=== PATIENT | male | born 1990 | race Caucasian/White ===

== ENCOUNTER 2018-07-01 02:55 | Emergency (ER) | payer OTHER ==
[2018-07-01 03:06] VITALS: BP 131/70
--- NOTE | 2018-07-01 03:15 | ED Physician Documentation ---
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) Where injury occurred: Work Timing - onset: Today Timing - duration: Hours Timing - details: Abrupt onset, Still present Improved by: Rest, Immobilization Worsened by: Moving, Palpating Associated symptoms: No: Weakness, Numbness, Tingling Contributing factors: No: Anticoagulated Similar symptoms before: Diagnosis (shoulder dislocation) Recently seen: Not recently seen - Additonal information Additional information: 27-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 He has had his shoulders dislocate previously and he was able to get his shoulder back in joint by manipulating his shoulder. He has a lot of pain associated with this now. Review of Systems Constitutional: denies: Fever Eyes: denies: Decreased vision, Photophobia Ears: denies: Ear pain Nose: denies: Congestion Throat: denies: Sore throat Cardiac: denies: Chest pain / pressure Respiratory: denies: Dyspnea, Cough GI: denies: Abdominal Pain, Nausea, Vomiting : denies: Dysuria, Frequency Skin: denies: Rash Musculoskeletal: reports: Joint pain. denies: Neck pain, Back pain Neurologic: denies: Generalized weakness, Focal weakness, Numbness PD PAST MEDICAL HISTORY - Past Medical History Past Medical History: No - Past Surgical History Past Surgical History: No - Present Medications Home Medications: Ambulatory Orders Medication Instructions Recorded Confirmed No Known Home Medications 07/01/18 07/01/18 - Allergies Allergies/Adverse Reactions: Allergies Allergy/AdvReac Type Severity Reaction Status Date / Time No Known Drug Allergies Allergy Verified 07/01/18 03:02 - Social History Does the pt smoke?: Yes Smoking Status: Current every day smoker Does the pt drink ETOH?: No Does the pt have substance abuse?: No - Immunizations Immunizations are current?: Yes PD ED PE NORMAL - Vitals Vital signs reviewed: Yes (hypertensive mild ) - General General: Alert and oriented X 3, Well developed/nourished - HEENT HEENT: Atraumatic, PERRL - Neck Neck: Supple, no meningeal sign, No bony TTP - Respiratory Respiratory: No respiratory distress - Derm Derm: Normal color, Warm and dry, No rash - Extremities Extremities: No deformity, No edema, Other (There is point tenderness to the anterior shoulder and pain with any movement. There is unrestricted movement through ROM just painful. The joint does not seem to be out of socket now. distal n/v is intact. ) - Neuro Neuro: Alert and oriented X 3, back end architect 2-12 intact, No motor deficit, No sensory deficit, Normal speech Eye Opening: Spontaneous Motor: Obeys Commands Verbal: Oriented GCS Score: 15 - Psych Psych: Normal mood, Normal affect Results - Vitals Vitals: Vital Signs - 24 hr 07/01/18 02:58 Temperature 36.7 C Heart Rate 54 L Respiratory 16 Rate Blood Pressure 131/70 H O2 Saturation 98 Oxygen O2 Source Room air - Rads (name of study) R shoulder Radiology: Prelim report reviewed (Impression: No acute osseous abnormality demonstrated.), EMP read indepedently, See rad report PD MEDICAL DECISION MAKING - ED course Complexity details: reviewed results, re-evaluated patient, considered differential, d/w patient, d/w family ED course: 27 y/o male with history of shoulder dislocations has had a spontaneously reduced dislocation of the right shoulder and post dislocation pain. He is placed into a sling and given instructions about shoulder dislocation and he is asked to follow up with orthopedics. Departure - Departure Disposition: 01 Home, Self Care Clinical Impression: Dislocation of right shoulder joint Qualifiers: Encounter type: initial encounter Qualified Code(s): S43.004A - Unspecified dislocation of right shoulder joint, initial encounter Condition: Stable Instructions: Shoulder Instability, ED Dislocation Shoulder Redu Follow-Up: [facility] [Provider Group]
--- NOTE | 2018-07-01 03:55 | XRAY Report ---
Reason: dislocation/reduced Procedure Date: 07/01/2018 Accession Number: [id number] / [id number] Procedure: XR - Shoulder 3 View RT CPT Code: FULL RESULT: EXAM: RIGHT SHOULDER RADIOGRAPHY EXAM DATE: 07/01/2018 03:32 AM. CLINICAL HISTORY: Dislocation/reduced. Pushing on a lever tonight, popped shoulder out posteriorly, patient popped it back in, "has popped out shoulder several times". COMPARISON: None. TECHNIQUE: 4 views. FINDINGS: Bones: No acute displaced fractures or suspicious bony lesion. Joints: No dislocation. Soft Tissues: No significant soft tissue swelling. IMPRESSION: No acute osseous abnormality demonstrated. RADIA RADIA
== END 2018-07-01 04:12 | disposition home or self-care (01) ==
LOC: ED 02:55
DX: S43.004A Unspecified dislocation of right shoulder joint, initial encounter (principal); F17.200 Nicotine dependence, unspecified, uncomplicated; X50.0XXA Overexertion from strenuous movement or load, initial encounter; Y93.89 Activity, other specified; Y99.1 Military activity
CPT/HCPCS: 99283

== ENCOUNTER 2018-07-22 11:48 | Outpatient (CLI) | payer OTHER ==
[~2018-07-22 11:48] MED LIST: GADOPENTETATE DIMEGLUMINE 5 ML VIAL IVP ONE; IOTHALAMATE MEGLUMINE 50 ML VIAL ONE
[2018-07-22] MEDS ORDERED: GADOPENTETATE DIMEGLUMINE 5 ML VIAL IVP ONE (12:54)
[2018-07-22] MEDS ORDERED: IOTHALAMATE MEGLUMINE 50 ML VIAL IVP ONE (12:54)
[2018-07-22] MEDS ORDERED: BUFFERED LIDOCAINE 10 ML SYRINGE IU ONE (12:54)
--- NOTE | 2018-07-22 16:15 | XRAY Report ---
Reason: HX BILAT SH DISLOCATION Procedure Date: 07/22/2018 Accession Number: [id number] / [id number] Procedure: FL - Arthrogram Needle Placement CPT Code: FULL RESULT: EXAM: FLUOROSCOPIC GUIDANCE. EXAM DATE: 07/22/2018 12:52 PM. CLINICAL HISTORY: History of bilateral shoulder dislocation. COMPARISON: None. FINDINGS: Fluoroscopic injection for right shoulder MR arthrogram performed. Informed consent was obtained. Entry site was localized and marked on the skin surface using fluoroscopy. Skin site was prepped and draped in the usual sterile fashion. Skin and deeper tissues were anesthetized with 5 cc of 1% lidocaine. A single pass was made with a 22-gauge spinal needle. Intra-articular position was confirmed with injection of 3 cc of iodinated contrast. A 10 cc mixture containing 10 cc of sterile saline and 0.1 cc Gadavist were then injected intra-articularly. Patient was then sent for MR exam. Patient tolerated the procedure well. IMPRESSION: Fluoroscopic guidance provided for injection for MR arthrogram. Total fluoroscopy time: 14 seconds. Number of images: One. RADIA
--- NOTE | 2018-07-22 16:46 | XRAY Report ---
Reason: HX BILAT SH DISLOCATION Procedure Date: 07/22/2018 Accession Number: [id number] / [id number] Procedure: FL - Arthrogram Needle Placement CPT Code: FULL RESULT: EXAM: FLUOROSCOPIC GUIDANCE EXAM DATE: 07/22/2018 02:07 PM. CLINICAL HISTORY: History of bilateral shoulder dislocation. COMPARISON: Arthrogram 07/22/2018 12:21 PM. FINDINGS: Fluoroscopic guidance for left shoulder injection of gadolinium contrast mixture for MR arthrogram performed. Informed consent was obtained. Skin site was marked using fluoroscopic guidance. Skin site was prepped and draped in the usual sterile fashion. Skin and deeper tissues were anesthetized with 5 cc of lidocaine. A 22-gauge spinal needle was advanced into the joint space and tip position confirmed with intra-articular injection of 2 cc of iodinated contrast. A 10 cc mixture containing 10 cc of sterile saline mixed with 0.1 cc Gadavist was then injected intra-articularly. Patient was then sent for MR. Patient tolerated the procedure well and it went without complication. IMPRESSION: Fluoroscopic guidance provided for left shoulder injection for MR arthrogram as described. Total fluoroscopy time: 55 seconds. Number of images: 1. RADIA
--- NOTE | 2018-07-23 09:31 | MRI Report ---
Reason: HX BILAT SH DISLOCATION Procedure Date: 07/22/2018 Accession Number: [id number] / [id number] Procedure: MRI - Arthrogram Shoulder RT CPT Code: FULL RESULT: EXAM: RIGHT SHOULDER MRI ARTHROGRAM WITH CONTRAST EXAM DATE: 07/22/2018 01:43 PM. CLINICAL HISTORY: History of bilateral shoulder dislocation. COMPARISON: None. TECHNIQUE: Multiplanar, multisequence T1-weighted and fluid-sensitive sequences of the shoulder after an arthrographic injection of dilute gadolinium, dictated under a separate exam. Other: None. FINDINGS: Acromioclavicular Region: The acromion is type II. AC joint is moderately osteoarthritic. The coracoacromial and coracoclavicular ligaments are intact. There is no contrast or fluid in the subacromial/subdeltoid bursa. Glenohumeral Region: No subluxation. No loose bodies. The articular cartilage is unremarkable. Inferior glenohumeral ligament is stretched and somewhat patulous. Series 701 image 14. Bone Marrow: Hill-Sachs deformity with subjacent marrow edema seen posterior superior humeral head. Series 801 image 15, series 401 image 55. Labrum: Anterior inferior full-thickness labral tear anterior inferior labrum is absent, discrete free fragments are noted in the inferior aspect of the axillary recess. No bony Bankart. Biceps Tendon: The long head of the biceps tendon and biceps drew are intact. Musculature/Rotator Cuff: There is mild increased T2 signal and thickening of the distal infraspinatus. Remainder of the rotator cuff appears otherwise unremarkable. No proximal muscular edema or fatty atrophy. Other: The subcutaneous tissues are unremarkable. IMPRESSION: 1. Type II unipartite undersurface osseous acromion shape. AC joint is moderately osteoarthritic. Inferior glenohumeral ligament is stretched and somewhat patulous. There is some debris in the inferior axillary pouch. 2. Hill-Sachs deformity superior lateral humeral head. Anterior inferior full-thickness labral tear, labral fragment is not discretely identified and may be related to the debris in the inferior axillary pouch. No bony Bankart. 3. Some increased T2 signal and thickening of the distal infraspinatus. No proximal muscular edema or fatty atrophy. [facility] MUSCULOSKELETAL RADIOLOGY SECTION
--- NOTE | 2018-07-23 09:38 | MRI Report ---
Reason: HX BILAT SH DISLOCATION Procedure Date: 07/22/2018 Accession Number: [id number] / [id number] Procedure: MRI - Arthrogram Shoulder LT CPT Code: FULL RESULT: EXAM: LEFT SHOULDER MRI ARTHROGRAM WITH CONTRAST EXAM DATE: 07/22/2018 02:43 PM. CLINICAL HISTORY: History of bilateral shoulder dislocation. Shoulder pain. COMPARISON: None. TECHNIQUE: Multiplanar, multisequence T1-weighted and fluid-sensitive sequences of the shoulder after an arthrographic injection of dilute gadolinium, dictated under a separate exam. Other: None. FINDINGS: Acromioclavicular Region: The acromion is type II. Acromioclavicular joint shows mild early osteoarthritic change. The coracoacromial and coracoclavicular ligaments are intact. There is no contrast or fluid in the subacromial/subdeltoid bursa. Glenohumeral Region: No subluxation. At least 2 discrete loose bodies are seen in the shoulder, one anterior and one posterior on series 601 image 11, these both measure 4-5 mm. The articular cartilage is unremarkable. The glenohumeral ligaments and joint capsule are unremarkable. Bone Marrow: Hill-Sachs deformity seen at the posterior-superior proximal humeral head without significant subjacent marrow edema. Series 401 image 54. Labrum: Full-thickness labral tear at the inferior labrum with a focal area of absent labrum on series 401 image 43. No bony Bankart. Biceps Tendon: The long head of the biceps tendon and biceps drew are intact. Musculature/Rotator Cuff: Some increased T2 signal and slight thickening of the infraspinatus. Supraspinatus, subscapularis and teres minor are normal. No proximal muscular edema or fatty atrophy. Other: The subcutaneous tissues are unremarkable. IMPRESSION: 1. AC joint shows mild early osteoarthritic change. At least 2 discrete loose bodies in the shoulder, one anteriorly and one posteriorly measuring about 4-5 mm. 2. Hill-Sachs deformity without subjacent bone bruise. Full-thickness labral tear at the anterior labrum with a focal area of absent labrum seen anteriorly and inferiorly, no bony Bankart. The absence labrum may be related to the loose bodies in the joint. 3. Mild tendinosis at the infraspinatus. Remainder of the tendon appears unremarkable. [facility] MUSCULOSKELETAL RADIOLOGY SECTION
== END 2018-07-22 11:49 | disposition home or self-care (01) ==
LOC: DI 11:48
PROVIDERS: ATTEND General Practice
DX: M24.411 Recurrent dislocation, right shoulder (principal); M24.412 Recurrent dislocation, left shoulder; S43.492A Other sprain of left shoulder joint, initial encounter; S43.491A Other sprain of right shoulder joint, initial encounter; M24.012 Loose body in left shoulder; M19.012 Primary osteoarthritis, left shoulder; M19.011 Primary osteoarthritis, right shoulder; M75.82 Other shoulder lesions, left shoulder
CPT/HCPCS: 23350; 73222; 77002; Q9961

== ENCOUNTER 2018-09-04 07:53 | Day surgery (SDC) | payer OTHER ==
[~2018-09-04 07:53] MED LIST changes: +BUPIVACAINE 0.25% PF 30 ML VIAL ONE; +EPINEPHrine 1 MG/ML AMP ONE; -GADOPENTETATE DIMEGLUMINE 5 ML VIAL IVP ONE; -IOTHALAMATE MEGLUMINE 50 ML VIAL ONE
[2018-09-04] MEDS ORDERED: LACTATED RINGERS 1,000 ML IV ONE ×2 (08:21→12:05)
[2018-09-04] MEDS ORDERED: DEXAMETHASONE 4 MG/ML VIAL ONE (08:26)
[2018-09-04] MEDS ORDERED: fentaNYL 100 MCG/2 ML VIAL ONE (08:26)
[2018-09-04] MEDS ORDERED: MIDAZOLAM 2 MG/2 ML VIAL ONE (08:26)
[2018-09-04] MEDS ORDERED: ROPIVACAINE 0.5% PF 20 ML AMPULE ONE (08:28)
--- NOTE | 2018-09-04 08:38 | ANESTHESIA ---
Pre-Anesthesia VS, & Labs - Diagnosis Right shoulder labral tear - Procedure Right shoulder arthroscopy, labral repair Vital Signs: Temp Pulse Resp BP Pulse Ox 36.2 C L 62 16 129/83 H 98 09/04/18 08:21 09/04/18 08:21 09/04/18 08:21 09/04/18 08:21 09/04/18 08:21 Height 6 ft 2 in Weight (kg) 86.18 kg Body Mass Index 25.0 - NPO >8 hours Home Medications and Allergies Home Medications: Ambulatory Orders Fluoxetine HCl [Prozac] 20 mg PO 09/02/18 Fluoxetine HCl [Prozac] 20 mg PO 09/02/18 Allergies/Adverse Reactions: Allergies Allergy/AdvReac Type Severity Reaction Status Date / Time No Known Drug Allergies Allergy Verified 07/01/18 03:02 Anes History & Medical History - Anesthetic History Family history of Anesthesia Complications: Denies Family history of Malignant Hyperthermia: Denies - Medical History Cardiovascular: reports: None Pulmonary: reports: None Gastrointestinal: reports: None Urinary: reports: None Neuro: reports: None Musculoskeletal: reports: Other Endocrine/Autoimmune: reports: None Blood Disorders: reports: None Skin: reports: None Smoking Status: Current every day smoker (1/4 pack per day) Psychosocial: reports: Depression, Anxiety Exam General: Alert, Oriented x3, Cooperative, No acute distress Dental: WNL Mouth Openin Fingerbreadth Neck Mobility: Normal Mallampati classification: I Thyromental Distance: greater than 6 cm Respiratory: Lungs clear, Normal breath sounds, No respiratory distress, No accessory muscle use Cardiovascular: Regular rate, Normal S1, Normal S2, No murmurs Mental/Cognitive Status: Alert/Oriented X3, Normal for patient Plan Anesthesia Type: General, Interscalene Block (Right ISB for post op pain control per surgeon request) Regional Block: Per Surgeon's request for Post Op pain control Consent for Procedure(s) Verified and Reviewed: Yes Code Status: Attempt Resuscitation ASA classification: 1-Healthy patient Is this case an emergency?: No
--- NOTE | 2018-09-04 09:12 | ANESTHESIA PROCEDURE NOTE ---
Consent for Procedure(s) Verified and Reviewed: Yes Height and Weight: Height 6 ft 2 in Weight (kg) 86.18 kg Body Mass Index 25.0 Vital Signs: Temp Pulse Resp BP Pulse Ox 36.2 C L 62 16 129/83 H 98 09/04/18 08:21 09/04/18 08:21 09/04/18 08:21 09/04/18 08:21 09/04/18 08:21 Allergies No Known Drug Allergies Allergy (Verified 07/01/18 03:02) Requesting Provider: Dr. Villa Location: Right Interscalene brachial plexus ASA classification: 2-Mild systemic disease Is this case an emergency?: No Anes. Procedure Start Time: 08:50 Anes. Procedure Stop Time: 09:01 Procedure Notes: Right ISB requested by surgeon for post-op pain control. Risk and benefits of Right ISB discussed with patient and patient agreed to proceed. A total of 2mg versed and 100 mcg fentanyl was given IV for patient comfort. Right neck was prepped with chloroprep and the right brachial plexus between the scalene muscles was identified using Ultrasound. A 22 Ga Stimiplex needle was advanced toward the plexus and a total of 20 ml of 0.5% ropivicane plus 4mg decadron was injected around the nerve sheath. Adequate spread was noted. Patient tolerated the procedure well. Full evaluation was pending.
[2018-09-04] MEDS ORDERED: cefTRIAXone 2 GM in SODIUM CHLORIDE 0.9% MINIBAG 100 ML IV ONE (09:15)
[2018-09-04] MEDS ORDERED: PROPOFOL 1000 MG/100 ML IV ONE (11:00)
[2018-09-04] MEDS ORDERED: LIDOCAINE-MPF 2% 5 ML VIAL IM ONE (11:00)
[2018-09-04] MEDS ORDERED: ROCURONIUM 50 MG/5 ML VIAL IVP ONE (11:00)
[2018-09-04] MEDS ORDERED: ONDANSETRON 4 MG/2 ML VIAL IVP ONE (11:00)
[2018-09-04] MEDS ORDERED: KETOROLAC 30 MG/ML VIAL IVP ONE (11:00)
[2018-09-04] MEDS ORDERED: ACETAMINOPHEN 1,000 MG/100 ML 100 ML IV ONE (11:00)
[2018-09-04] MEDS ORDERED: DEXAMETHASONE 4 MG/ML VIAL IVP ONE (11:00)
[2018-09-04] MEDS ORDERED: ONDANSETRON 4 MG/2 ML VIAL IVP PRN (11:56)
[2018-09-04] MEDS ORDERED: oxyCODONE 5 MG TABLET PO PRN (11:56)
--- NOTE | 2018-09-04 12:03 | OPERATIVE REPORT ---
Operative Report - General Procedure Date: 09/04/18 Planned Procedure: Right shoulder labral repair & capsule shift Pre-Op Diagnosis: Right shoulder instability and labral tear Procedure Performed: Right shoulder arthroscopic capsular shift (Bankart Repair) Post Op Diagnosis: Right shoulder instability and labral tear - Procedure Note Primary Surgeon: Erickson Villa Estimated Blood Loss (mL): 5 Complications: None - Other Other Information/Narrative: [id number] PROCEDURE: Labral repair and capsular shift from 630-230 IMPLANTS: Arthrex knotless suture tack x5 POSTOPERATIVE PLAN: 0-2 weeks-Sling at all times. Pendulum exercises 5 times per day. 2-6 weeks-Passive range of motion with the following limits: FF to 120, ER to 30, abduction to 90 6-12 weeks-Active range of motion in all planes without limitation. Isometric rotator cuff strengthening is allowed 12-16 weeks-Gradually increase strengthening 16 weeks and beyond-Introduce dynamic activities EXAMINATION UNDER ANESTHESIA: ROM: Full Anterior load and shift: Grade 2 instability Posterior load and shift: Grade 1 laxity Inferior sulcus: Grade 1 laxity ARTHROSCOPIC FINDINGS: Rotator interval: Injected Biceps tendon & SLAP: Intact Subscapularis: Intact Rotator Cuff: Intact HAGL: No tear Labrum: Large bony Bankart lesion that healed medially along the neck. Posterior labrum had a small crack but was stable Glenoid Cartilage: Glad lesion anteriorly Humeral Head Cartilage: Small, shallow Hill-Sachs INDICATION FOR SURGERY: 27-year-old male with 1 year of recurrent right anterior shoulder instability with approximately 10 dislocation events. It is significantly limiting his ability to do recreational activities and he has difficulty in daily activities.. Nonoperative managment failed to resolve symptoms. The risks, benefits, and alternatives were discussed. Risks included pain, bleeding, infection, damage to nearby structures, lack of symptom relief, implant complications, stiffness, need for further surgeries, DVT, PE, stroke, and even . He signed a written consent form. PROCEDURE IN DETAIL: The patient was met in the preoperative holding on the day of the procedure. Operative extremity was signed. Consent was verified. He desired to proceed. Regional anesthesia was obtained in the preoperative area. They were brought to the operating room and surrendered to anesthesia. Once general anesthesia was obtained they were placed in the lateral decubitus position with the operative side up. An axillary roll was placed and all bony prominences were well-padded. They were then prepped and draped in the standard sterile fashion. A surgical timeout was held to confirm the patient procedure, identity, procedure, laterality, allergies, images, and antibiotics. All were in agreement we proceeded. Balanced suspension was applied and a standard diagnostic arthroscopy was performed utilizing posterior and anterior superior portal sites. The anterior superior portal site was created under direct visualization. The findings of the diagnostic arthroscopy can be found above. A mid glenoid portal was then created under direct visualization bordering the subscapularis tendon. I then used a combination of high and low angled elevators to develop the labral tear and release it from off the glenoid neck. The bony portion of the Bankart lesion was seen and it was left in place because it had healed to the neck. The cuff of labor and capsule was freely mobile and the subscapularis muscle fibers were visible. I then used to the pineapple rasp to finalize my release and abraded the bone to a bleeding bed. A sucker shaver was placed in the interval to debride any loose tissue and further abrade the glenoid neck. Any loose cartilage was debrided at that time. I then established a percutaneous 7:00 portal utilizing the Arthrex system. I then sequentially placed anchors at the 630 position in the posterior inferior labrum. The suture was passed using an appropriate 45 degree suture lasso. The labrum was secured using knotless technique. Appropriate tension was confirmed with a probe and the excess suture was cut. Using the same technique additional anchors were placed at 530, 430, 330, 230. Proper capsular tension was restored and a labral bumper was recreated. Balanced suspension was then released and final images were taken showing the humeral head centered in the glenoid. The portal sites were then closed with 3-0 Monocryl buried. Mastisol and Steri- Strips were applied. A sterile dressing and a sling was applied. He was awakened and transferred to the recovery room.
[2018-09-04 13:55] VITALS: BP 130/74
== END 2018-09-04 07:54 | disposition home or self-care (01) ==
LOC: SDS 07:53
PROVIDERS: ATTEND Orthopaedic Surgery
PROC: 0RQJ4ZZ Repair Right Shoulder Joint, Percutaneous Endoscopic Approach (ICD-10-PCS; principal; 2018-09-04 09:00)
DX: M25.311 Other instability, right shoulder (principal); S43.431D Superior glenoid labrum lesion of right shoulder, subsequent encounter; F32.9 Major depressive disorder, single episode, unspecified; F41.9 Anxiety disorder, unspecified; F17.210 Nicotine dependence, cigarettes, uncomplicated; Z79.891 Long term (current) use of opiate analgesic
CPT/HCPCS: 29806; C1713; J0131; J7120